=== PATIENT | female | born 1995 | race Hispanic/Latino ===

== ENCOUNTER 2020-04-13 12:51 | Inpatient (IN) | payer MEDICAID ==
[~2020-04-13] VITALS: Ht 157.5 cm; Wt 88.9 kg
[2020-04-13 13:37] LABS: APPEARANCE,URINE Clear (CLEAR); BILIRUBIN,URINE Negative (NEGATIVE); COLOR,URINE Yellow (YELLOW); GLUCOSE, URINE (UA) Negative (NEGATIVE); KETONES,URINE Negative (NEGATIVE); LEUKOCYTE ESTERASE ,URINE Small (NEGATIVE); NITRATE,URINE Negative (NEGATIVE); OCCULT BLOOD,URINE Negative (NEGATIVE); PROTEIN,URINE POS 1+ mg/dL (NEGATIVE)
[2020-04-13 13:51] LABS: BACTERIA,URINE Few /HPF (None Seen); RBC,URINE 0-1 /HPF (0-1); WBC,URINE 0-1 /HPF (0-1)
[2020-04-13] MEDS ORDERED: LACTATED RINGERS 1000ML 1,000 ML IV PRN (15:15)
[2020-04-13] MEDS ORDERED: AMPICILLIN 2GM+NS 100ML 100 ML IV SCH (15:15)
[2020-04-13] MEDS ORDERED: NALOXONE HCL 0.4 MG/1 ML ML IV PRN (15:15)
[2020-04-13] MEDS ORDERED: MEPERIDINE-PF 50 MG/ML SYG IVP PRN (15:15)
[2020-04-13] MEDS ORDERED: LACTATED RINGERS 500 ML 500 ML IV PRN (15:15)
[2020-04-13] MEDS ORDERED: PROMETHAZINE HCL 25 MG/ML 1ML AMPULE IM PRN (15:15)
[2020-04-13] MEDS ORDERED: EPHEDRINE SULFATE 50 MG/ML AMPULE IVP PRN (15:15)
[2020-04-13 15:36] LABS: HEMATOCRIT 32.1 % (36-48); MEAN CORPUSCULAR HEMOGLOBIN 21.9 pg (27.0-33.0); MEAN CORPUSCULAR HGB CONC 30.5 g/dL (32.0-36.0); MEAN CORPUSCULAR VOLUME 71.7 fL (79-99); PLATELET COUNT (AUTO) 258 K/uL (130-400); RED BLOOD CELL COUNT(AUTO) 4.48 MIL/uL (4.00-5.50); RED CELL DISTRIBUTION WIDTH 15.9 % (11.0-15.5); WHITE BLOOD COUNT (AUTO) 11.6 K/uL (4.8-10.8)
[2020-04-13] MEDS ORDERED: AMPICILLIN 1GM+NS 50ML 50 ML IV SCH (19:00)
[2020-04-13] MEDS ORDERED: LIDOCAINE HCL 1% 20 ML VIAL ONE (19:24)
[2020-04-13] MEDS ORDERED: BENZOCAINE/LANOLIN/ALOE VERA 60 ML AEROSOL TP PRN (20:45)
[2020-04-13] MEDS ORDERED: WITCH HAZEL 1 PAD TP PRN (20:45)
[2020-04-13] MEDS ORDERED: LANOLIN 30GM OINTMENT TP PRN (20:45)
[2020-04-13] MEDS ORDERED: ACETAMINOPHEN 325 MG TAB PO PRN (20:45)
[2020-04-13] MEDS ORDERED: ACETAMINOPHEN WITH CODEINE 1 TAB TAB PO PRN (20:45)
[2020-04-13 21:00] VITALS: BP 111/71
[2020-04-13] MEDS: DOCUSATE SODIUM 100 MG CAP PO SCH (21:25)
[2020-04-13] MEDS: IBUPROFEN 600 MG TABLET PO PRN (21:25)
[2020-04-13] MEDS: OXYTOCIN-LR 20 UNITS/1000 ML 1,000 ML IV SCH ×2 (21:28→23:41)
[2020-04-13 23:30] VITALS: BP 117/68
[2020-04-14 03:00] VITALS: BP 103/64
[2020-04-14 08:24] VITALS: BP 101/63
[2020-04-14] MEDS: DOCUSATE SODIUM 100 MG CAP PO SCH (08:27)
[2020-04-14] MEDS: IBUPROFEN 600 MG TABLET PO PRN ×2 (08:28→16:53)
[2020-04-14 12:00] VITALS: BP 110/66
[2020-04-14 16:53] VITALS: BP 110/73
[2020-04-16 17:09] LABS: HEPATITIS Bs ANTIGEN SCREEN P Negative (Negative)
== END 2020-04-14 19:05 | disposition home or self-care (01) | DRG 560 ==
LOC: LDH 12:51 → OBSVTOIN 15:08 → WSH 23:36
PROVIDERS: ADMIT Obstetrics & Gynecology; ATTEND Obstetrics & Gynecology
PROC: 10E0XZZ Delivery of Products of Conception, External Approach (ICD-10-PCS; principal; 2020-04-13)
PROC: 3E0R3BZ Introduction of Anesthetic Agent into Spinal Canal, Percutaneous Approach (ICD-10-PCS; 2020-04-13)
PROC: 0HQ9XZZ Repair Perineum Skin, External Approach (ICD-10-PCS; 2020-04-13)
PROC: 00HU33Z Insertion of Infusion Device into Spinal Canal, Percutaneous Approach (ICD-10-PCS; 2020-04-13)
DX: O70.0 First degree perineal laceration during delivery (principal); Z3A.39 39 weeks gestation of pregnancy; Z37.0 Single live birth
CPT/HCPCS: 36415; 81001; 85027; 86592; 86701; 86850; 86900; 86901; 87340; 87390; A4314; G0378; J0290; J2590; J7120